=== PATIENT | male | born 1960 | race African-American/Black ===

== ENCOUNTER 2020-10-29 19:48 | Emergency (ER) | payer BC ==
[~2020-10-29] VITALS: Ht 185.4 cm; Wt 100.0 kg
[2020-10-29 21:46] VITALS: BP 108/56
== END 2020-10-29 21:55 | disposition home or self-care (01) ==
LOC: ER 19:48
DX: I12.0 Hypertensive chronic kidney disease with stage 5 chronic kidney disease or end stage renal disease (principal); E86.0 Dehydration; E86.1 Hypovolemia; E11.22 Type 2 diabetes mellitus with diabetic chronic kidney disease; N18.6 End stage renal disease; Z99.2 Dependence on renal dialysis
CPT/HCPCS: 93005; 99283

== ENCOUNTER 2021-06-24 19:42 | Inpatient (IN) | payer BC ==
[~2021-06-24] VITALS: Ht 175.3 cm; Wt 147.7 kg
[2021-06-24] MEDS ORDERED: SODIUM CHLORIDE 0.9% 500 ML IV ONE (20:00)
[2021-06-24 20:15] LABS: BASOPHILS % 1.2 % (0.0-2.0); EOSINOPHILS % 4.6 % (0.0-5.0); HEMATOCRIT. 40.6 % (42.0-52.0); HEMOGLOBIN. 13.4 g/dL (14.0-18.0); LYMPHOCYTES % 9.8 % (20.0-50.0); MEAN CORPUSCULAR HEMOGLOBIN 30.6 pg (28.0-32.0); MEAN CORPUSCULAR VOLUME 92.6 fL (80.0-94.0); MEAN PLATELET VOLUME 8.9 fl (7.4-10.4); MONOCYTES % 8.4 % (2.0-8.0); PLATELET 200 x1000/uL (130-400); RED BLOOD CELL COUNT 4.38 mill/uL (4.7-6.1); RED CELL DISTRIBUTION WIDTH 14.1 % (11.6-14.6)
[2021-06-24 20:21] LABS: CHLORIDE 95 mEq/L (98-107)
[2021-06-24 20:24] LABS: PROTHROMBIN TIME 10.9 sec (9.6-11.0)
[2021-06-24 20:27] LABS: PHOSPHORUS 3.4 mg/dL (2.5-4.9)
[2021-06-24] MEDS ORDERED: HYDROCODONE/ACETAMINOPHEN 5/325MG TABLET PO PRN (23:00)
[2021-06-24] MEDS ORDERED: ONDANSETRON HCL 4MG/2ML INJ IV PRN (23:00)
[2021-06-24] MEDS ORDERED: GUAIFENESIN 200MG/10ML SUGAR FREE UDC PO PRN (23:00)
[2021-06-24] MEDS ORDERED: DOCUSATE SODIUM 100MG CAPSULE PO PRN (23:00)
[2021-06-24] MEDS ORDERED: MAGNESIUM/ALUMINUM HYDROXIDE/SIMETHICONE 30ML UDC PO PRN (23:00)
[2021-06-24] MEDS ORDERED: NALOXONE HCL 0.4MG/ML VIAL IV PRN (23:00)
[2021-06-24] MEDS ORDERED: DIPHENHYDRAMINE 50MG/ML VIAL IV PRN (23:00)
[2021-06-25 04:09] LABS: BASOPHILS % 1.3 % (0.0-2.0); EOSINOPHILS % 4.7 % (0.0-5.0); HEMOGLOBIN. 13.2 g/dL (14.0-18.0); LYMPHOCYTES % 10.3 % (20.0-50.0); MEAN CORPUSCULAR HEMOGLOBIN 30.5 pg (28.0-32.0); MEAN CORPUSCULAR VOLUME 92.3 fL (80.0-94.0); MONOCYTES % 9.3 % (2.0-8.0); NEUTROPHILS % 74.4 % (40.0-76.0); PLATELET 191 x1000/uL (130-400); RED BLOOD CELL COUNT 4.33 mill/uL (4.7-6.1); RED CELL DISTRIBUTION WIDTH 14.2 % (11.6-14.6)
[2021-06-25 04:17] LABS: CHLORIDE 98 mEq/L (98-107)
[2021-06-25] MEDS: MIDODRINE HCL 2.5MG TABLET PO SCH ×3 (09:51→16:20)
[2021-06-25 10:12] VITALS: BP 134/84
[2021-06-25 10:47] VITALS: BP 134/84
[2021-06-25] MEDS ORDERED: SUCR500T PO (10:50)
[2021-06-25] MEDS ORDERED: APIX5TAB PO (10:50)
[2021-06-25] MEDS ORDERED: LABE200T9 PO (10:50)
[2021-06-25 12:00] VITALS: BP 133/78
[2021-06-25 16:00] VITALS: BP 115/68
[2021-06-25] MEDS: ACETAMINOPHEN 325MG TABLET PO PRN (16:19)
[2021-06-25 20:00] VITALS: BP 114/79
[2021-06-26] VITALS: BP 130/90
[2021-06-26 04:00] VITALS: BP 137/89
[2021-06-26] MEDS: ACETAMINOPHEN 325MG TABLET PO PRN (06:02)
[2021-06-26 08:00] VITALS: BP 128/66
[2021-06-26] MEDS: MIDODRINE HCL 2.5MG TABLET PO SCH (10:14)
[2021-06-26 11:53] VITALS: BP 128/66
[2021-06-26 12:20] VITALS: BP 141/45
== END 2021-06-26 13:18 | disposition home or self-care (01) | DRG 314 ==
LOC: ER 19:42 → EDBEDREQ 19:53 → EDBEDREQTM 21:23 → MICUSO 06-25 00:15 → 6WST 06-25 08:08
PROVIDERS: ADMIT Hospitalist; ATTEND Hospitalist
DX: I95.9 Hypotension, unspecified (principal); N18.6 End stage renal disease; I12.0 Hypertensive chronic kidney disease with stage 5 chronic kidney disease or end stage renal disease; D64.9 Anemia, unspecified; E11.22 Type 2 diabetes mellitus with diabetic chronic kidney disease; Z99.2 Dependence on renal dialysis
CPT/HCPCS: 36415; 71045; 80053; 83735; 84100; 84484; 85025; 93005; 99285; J7040